=== PATIENT | male | born 1930 | race Caucasian/White ===

== ENCOUNTER 2017-07-29 10:30 | Outpatient (CLI) | payer MEDICARE ==
--- NOTE | 2017-07-29 13:31 | CT ---
CT OF CHEST PERFORMED WITHOUT CONTRAST ENHANCEMENT: HISTORY: Followup of left pleural effusion. COMPARISON: A 02/05/16 exam. FINDINGS: The left-sided pleural effusion that was noted on the prior examination is still present, although sl ightly smaller in size as compared to the prior exam. The volume loss changes involving the left low er lobe persist. Pleural-based calcifications are stable. No significant mediastinal adenopathy appreciated on this noncontrast study. Visualized liver parenchyma is unremarkable. Calcification of the gallbladder wall is again noted. IMPRESSION: 1. Slight interval decrease in size of the left-sided pleural effusion with persistent atelectasis o f the left lower lobe and stable pleural-based calcifications in both lung babin. 2. Calcification associated with the gallbladder which appears to be calcification related to the wa ll of the gallbladder. POS: NILAM
== END 2017-07-29 10:31 | disposition home or self-care (01) ==
LOC: CT 10:30
PROVIDERS: ATTEND Internal Medicine
DX: J61 Pneumoconiosis due to asbestos and other mineral fibers (principal); J90 Pleural effusion, not elsewhere classified; R91.8 Other nonspecific abnormal finding of lung field
CPT/HCPCS: 71250

== ENCOUNTER 2017-12-02 15:36 | Emergency (ER) | payer MEDICARE | END 2017-12-02 16:03 | disposition left against medical advice (07) | LOC: ERS 15:36 | DX: Z53.21 Procedure and treatment not carried out due to patient leaving prior to being seen by health care provider (principal) ==

== ENCOUNTER 2018-01-13 12:30 | Outpatient (CLI) | payer MEDICARE | END 2018-01-13 12:31 | disposition home or self-care (01) | LOC: CP 12:30 | PROVIDERS: ATTEND Internal Medicine | DX: J84.9 Interstitial pulmonary disease, unspecified (principal); J44.9 Chronic obstructive pulmonary disease, unspecified; J96.11 Chronic respiratory failure with hypoxia | CPT/HCPCS: 94010 ==

== ENCOUNTER 2018-05-13 19:30 | Outpatient (CLI) | payer MEDICARE | END 2018-05-13 19:31 | disposition home or self-care (01) | LOC: SLEEPLAB 19:30 | PROVIDERS: ATTEND Internal Medicine | DX: G47.33 Obstructive sleep apnea (adult) (pediatric) (principal); R51 Headache; K21.9 Gastro-esophageal reflux disease without esophagitis; I10 Essential (primary) hypertension | CPT/HCPCS: 95811 ==